=== PATIENT | female | born 1990 | race Caucasian/White ===

== ENCOUNTER 2017-02-07 22:17 | Emergency (ER) ==
[2017-02-07 22:29] VITALS: BP 119/84; TEMP 98.3; BMI 25.0
[2017-02-07 23:30] LABS: FLU INTERNAL QC INTERNAL QC VALID; RAPID FLU A NEGATIVE (NEGATIVE); RAPID FLU B NEGATIVE (NEGATIVE)
[2017-02-08 00:17] LABS: BILIRUBIN,URINE Negative (NEGATIVE); KETONES,URINE Negative (NEGATIVE); LEUKOCYTE ESTERASE ,URINE 3+ (NEGATIVE); NITRITE,URINE Negative (NEGATIVE); PROTEIN,URINE Negative (NEGATIVE); URINE, BLOOD 2+ (NEGATIVE)
[2017-02-08 00:31] LABS: ADD URINE MICROSCOPIC YES
[2017-02-08 00:33] LABS: BACTERIA,URINE 3+ (NOT PRESENT)
[2017-02-08 00:34] LABS: COCAIN SCREEN,URINE NEGATIVE (NEGATIVE)
[2017-02-08 00:35] LABS: SERUM PREGNANCY INTERNAL QC INTERNAL QC VALID
[2017-02-08 00:36] LABS: ALBUMIN 4.1 g/dL (3.4-5.0); ALBUMIN/GLOBULIN RATIO 1.46; ANION GAP 11.6; BILIRUBIN,TOTAL 0.64 mg/dL (0.00-1.20); BUN/CREATININE RATIO 15.18; CALCIUM 9.2 mg/dL (8.2-10.2); CREATININE 0.79 mg/dL (0.60-1.30); POTASSIUM 3.6 mmol/L (3.5-5.10); TOTAL PROTEIN 6.9 g/dL (6.4-8.2)
[2017-02-08 00:43] LABS: BASOPHILS # (AUTO) 0.1 K/uL (0-0.2); BASOPHILS % (AUTO) 0.7 % (0.0-3.0); EOSINOPHILS # (AUTO) 0.2 K/ul (0.0-0.7); EOSINOPHILS % (AUTO) 1.7 % (0.0-7.0); HEMATOCRIT 38.2 % (37.0-47.0); HEMOGLOBIN 13.7 g/dl (12.0-16.0); IMMATURE GRANULOCYTE % (AUTO) 0.2 % (0.0-5.0); LYMPHOCYTES % (AUTO) 33.4 (10.0-50.0); MEAN CORPUSCULAR HEMOGLOBIN 33.4 pg (27.0-31.0); MEAN CORPUSCULAR HGB CONC 35.9 (31.8-35.4); MEAN CORPUSCULAR VOLUME 93.2 fl (81.0-99.0); MONOCYTES # (AUTO) 0.6 K/uL (0.4-2.0); MONOCYTES % (AUTO) 6.8 (0-10); NEUTROPHILS # (AUTO) 5.1 K/ul (2.0-6.9); NEUTROPHILS % (AUTO) 57.2; PLATELET COUNT 252 10^3/uL (140-440); WHITE BLOOD COUNT 8.93 K/ul (4.6-10.2)
--- NOTE | 2017-02-08 01:26 | CT ---
EXAM: CT scan brain without contrast HISTORY: Headache COMPARISON: None. FINDINGS: Contiguous axial images were obtained from the skull base to the convexities without cont rast utilizing 5-mm collimation. Sagittal and coronal reconstructions were imaged and reviewed... T he ventricles and CSF spaces are within normal limits. No acute intracranial findings. The visuali zed paranasal sinuses and mastoid air cells are clear.. Focal dural calcification is seen in the ri ght frontal region. IMPRESSION: No acute intracranial findings
--- NOTE | 2017-02-08 01:27 | DI ---
EXAM: Chest, two views, 02/08/2017 HISTORY: Cough COMPARISON: 05/05/2016 FINDINGS / IMPRESSION: Cardiomediastinal contours appear within normal limits. No pulmonary consol idation, effusion or pneumothorax No acute cardiopulmonary process.
--- NOTE | 2017-02-08 03:00 | ED.PDOC ---
General ED Provider: Dr. STEFANY MCKENNA-ER Chief Complaint: Non-specific Complaint Stated Complaint: im tired and achy--low grade temp--chills thisam Time Seen by Physician: 02:58 Mode of Arrival: Walk-In Information Source: Patient, Family Exam Limitations: No limitations Nursing and Triage Documentation Reviewed and Agree: No (denies cp or brink to me) Miscellaneous Complaint Exam - Febrile Illness/Adult Complaint/Exam Onset/Duration: 3 days Symptoms Are: Still present Timing: Intermittent Episodes Lasting: Hours Initial Severity: Mild Current Severity: Mild Aggravating: Reports: None Alleviating: Reports: None Associated Signs and Symptoms: Reports: Chills, Dysuria. Denies: Headache, Fluid intake, Short of air, Cough, Sore throat, Nausea, Vomiting, Diaphoresis, Arthralgia, Stiff neck, Myalgia, Rash, Altered mental status Related History: Denies: Recent tick bite, Recent tick exposure Pseudomonas Risk Factors: Reports: None Serious Bacterial Infection Risk Factors: Reports: None Current Antibiotic Use: No Related Surgical History: None Specific Findings: Absent: Meningeal signs, Diaphoresis, Joint swelling, Erythema, Cellulitis, Lymphadenopathy, Petechiae, CVA tenderness Review of Systems - Review Of Systems Constitutional: Reports: Chills, Fever, Weakness Eyes: Reports: No symptoms Ears, Nose, Mouth, Throat: Reports: No symptoms Respiratory: Reports: No symptoms Cardiac: Reports: No symptoms GI: Reports: No symptoms : Reports: No symptoms Musculoskeletal: Reports: No symptoms Skin: Reports: No symptoms Neurological: Reports: No symptoms Endocrine: Reports: No symptoms Hematologic/Lymphatic: Reports: No symptoms All Other Systems: Reviewed and Negative Past Medical History - Past Medical History Endocrine: Reports: None Cardiovascular: Reports: None Respiratory: Reports: None Hematological: Reports: None Gastrointestinal: Reports: None Genitourinary: Reports: None Neuro/Psych: Reports: None Musculoskeletal: Reports: None Cancer: Reports: None Last Menstrual Period: JAN 13, 2017 Other Pertinent Past Medical History: AB(MC)ONE - Surgical History General Surgical History: Reports: Tonsillectomy - Family History Family History: Reports: None - Social History Smoking Status: Current every day smoker, Heavy tobacco smoker Hx Substance Use: Yes (cocaine in past(meth- PATIENT HAS REPEAT USE"IT ISN'T CAUSING THIS",INFORM)) Alcohol Screening: Occasionally Lives: With family - Immunizations Tetanus Shot up to Date: No Physical Exam - Physical Exam Appearance: Well-appearing, No pain distress, Well-nourished Eyes: LISSETH, EOMI, Conjunctiva clear ENT: Ears normal, Nose normal, Oropharynx normal Neck: Supple Respiratory: Airway patent, Breath sounds clear, Breath sounds equal, Respirations nonlabored Cardiovascular: RRR, Pulses normal, No rub, No murmur GI/: Soft, Nontender, No masses, Bowel sounds normal, No Organomegaly Musculoskeletal: Normal strength, ROM intact, No edema, No calf tenderness Skin: Warm, Dry, Normal color Neurological: Sensation intact, Motor intact, Reflexes intact, Cranial nerves intact, Alert, Oriented Psychiatric: Affect appropriate, Mood appropriate Interpretation - Radiology Interpretation Radiology Interpretation By: Radiologist Radiology Results: Negative Exam Interpreted: CXR, CT Scan - EKG Interpretation Time of EKG #1: 03:01 Rhythm: Sinus Ectopy: None Flanagan: NL ST Segment: Normal Critical Care Note - Critical Care Note Total Time (mins): 0 Course - Course Hematology/Chemistry: 02/07/17 00:10 02/07/17 00:10 Orders, Labs, Meds: Lab Review 02/07/17 02/07/17 02/08/17 00:10 23:00 00:10 WBC 8.93 RBC 4.10 L Hgb 13.7 Hct 38.2 MCV 93.2 MCH 33.4 H MCHC 35.9 H RDW Coeff of Jazmine 11.9 Plt Count 252 Immature Gran % (Auto) 0.2 Neut % (Auto) 57.2 Lymph % (Auto) 33.4 [place] % (Auto) 6.8 Eos % (Auto) 1.7 Baso % (Auto) 0.7 Immature Gran # (Auto) 0.0 Neut # 5.1 Lymph # 3.0 [place] # 0.6 Eos # 0.2 Baso # 0.1 D-Dimer < 0.19 L Sodium 137 Potassium 3.6 Chloride 104 Carbon Dioxide 25 Anion Gap 11.6 BUN 12 Creatinine 0.79 Estimated GFR (MDRD) 89.00 BUN/Creatinine Ratio 15.18 Glucose 84 Calcium 9.2 Total Bilirubin 0.64 AST 15 ALT 13 Alkaline Phosphatase 54 Total Protein 6.9 Albumin 4.1 Globulin 2.8 Albumin/Globulin Ratio 1.46 Amylase 48 Lipase 26 Serum , Qual Negative Urine Color Yellow Urine Clarity Clear Urine pH 6.0 Ur Specific [place] 1.010 Urine Protein Negative Urine Glucose (UA) Negative Urine Ketones Negative Urine Blood 2+ Urine Nitrite Negative Urine Bilirubin Negative Urine Urobilinogen 0.2 Ur Leukocyte Esterase 3+ Urine Microscopic RBC 5-10 Urine Microscopic WBC Tntc Ur Squamous Epith Cells Tntc Urine Bacteria 3+ Urine Opiates Screen Negative Ur Oxycodone Screen Negative Urine Methadone Screen Negative Ur Propoxyphene Screen Negative Ur Barbiturates Screen Negative U Tricyclic Antidepress Negative Ur Phencyclidine Scrn Negative Ur Amphetamine Screen Negative U Methamphetamines Scrn Negative U Benzodiazepines Scrn Negative Urine Cocaine Screen Negative U Cannabinoids Screen Negative Influenza A (Rapid) Negative Influenza B (Rapid) Negative Orders Category Date Time Status EKG-(ED ONLY) Stat CARDIO 02/07/17 23:50 Completed AMYLASE Stat LAB 02/07/17 00:10 Completed CBC W/ AUTO DIFF Stat LAB 02/07/17 00:10 Completed COMPREHENSIVE METABOLIC PANEL Stat LAB 02/07/17 00:10 Completed D-DIMER Stat LAB 02/07/17 00:10 Completed FLU A & B RAPID TEST [RAPID FLU A/B] Stat LAB 02/07/17 23:00 Completed LIPASE Stat LAB 02/07/17 00:10 Completed MOLECULAR GROUP A STREP Stat LAB 02/07/17 23:00 Results SERUM Stat LAB 02/07/17 00:10 Completed STREP SCREEN Stat LAB 02/07/17 23:00 Results URINALYSIS C & S IF INDICATED Stat LAB 02/08/17 00:10 Completed URINE CULTURE Routine LAB 02/08/17 00:05 Received URINE DRUG SCREEN (RAPID FOR ED) [DRUG SCREEN, URINE, LAB 02/08/17 00:10 Completed RAPID] Stat CT HEAD W/O CONTRAST Stat RADS 02/07/17 23:57 Completed CXR [CHEST, 2 VIEWS PA & LAT] Stat RADS 02/07/17 23:51 Completed Vital Signs: Temp Pulse Resp BP Pulse Ox 02/07/17 22:19 98.3 F 61 16 119/84 100 Departure - Departure Time of Disposition: 03:01 Disposition: HOME SELF-CARE Discharge Problem: UTI (urinary tract infection) Qualifiers: Urinary tract infection type: site unspecified Hematuria presence: without hematuria Qualifier Code: (N39.0) Urinary tract infection, site not specified Instructions: Urinary Tract Infection in Women (ED) Condition: Good Pt referred to PMD for follow-up: Yes Additional Instructions: cipro 500mg bid x 7 days--f/u with your doctor next week to recheck urine Allergies/Adverse Reactions: Allergies guaifenesin [From Robitussin] Adverse Reaction (Verified 02/07/17 22:30) UNKNOWN REACTION, STATES MOTHER ALWAYS TOLD HER SHE WAS ALLERGIC TO IT Home Medications: Ambulatory Orders 1 [No Reported Medications] 10/11/15 Disposition Discussed With: Patient, Family
== END 2017-02-08 03:10 | disposition home or self-care (01) ==
LOC: ED 22:17
DX: N39.0 Urinary tract infection, site not specified (principal); F17.210 Nicotine dependence, cigarettes, uncomplicated
CPT/HCPCS: 36415; 80053; 80306; 81001; 82150; 83690; 84703; 85025; 85379; 87086; 87651; 87804; 87880; 93005; 93010; 99284

== ENCOUNTER 2018-02-09 20:20 | Emergency (ER) ==
[2018-02-09 20:33] VITALS: BP 119/79; TEMP 97.9; BMI 25.8
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
[2018-02-09] MEDS ORDERED: SOLU-MEDROL 125 MG IM STA (21:12)
== END 2018-02-09 21:40 | disposition home or self-care (01) ==
LOC: ED 20:20
DX: M54.5 Low back pain (principal); M25.561 Pain in right knee
CPT/HCPCS: 96372; 99282

== ENCOUNTER 2018-06-05 16:09 | Outpatient (CLI) | END 2018-06-05 16:10 | disposition home or self-care (01) | LOC: RHC-LAB 16:09 | PROVIDERS: ATTEND Emergency Medicine | DX: B36.9 Superficial mycosis, unspecified (principal) | CPT/HCPCS: 36415; 80053 ==